=== PATIENT | female | born 1965 | race Two or more races ===

== ENCOUNTER 2016-03-29 11:27 | Inpatient (IN) | payer MEDICAID ==
[2016-03-29] MEDS ORDERED: Sodium Chloride 0.9% 1,000 ML IV ONE (11:41)
--- NOTE | 2016-03-29 11:47 | ED Physician Chart ---
Chief Complaint/HPI - Patient Information Date Seen:: 03/29/16 Time Seen:: 11:30 Chief Complaint:: vomiting History of Present Illness:: onset since 4am this am of N/V with intermittent occipital H/As relieved partially with advil; denies C/P, SOB, Abd pain, A/D/C, fever, chills, hematemesis, melena, hematochezia, cough, congestion, LOC, ALOC, gait changes, weakness, neck pain, or paresthesias Allergies:: Allergies Allergy/AdvReac Type Severity Reaction Status Date / Time No Known Allergies Allergy Verified 03/29/16 11:42 Review of Systems - Review of Systems General/Constitutional: No fever, No chills, No weight loss, No weakness, No diaphoresis, No edema, No loss of appetite Skin: No skin lesions, No rash, No bruising Head: No headache, No light-headedness Eyes: No loss of vision, No pain, No diplopia ENT: No earache, No nasal drainage, No sore throat, No tinnitus Neck: No neck pain, No swelling, No thyromegaly, No stiffness, No mass noted Cardio Vascular: No chest pain, No palpitations, No PND, No orthopnea, No edema Pulmonary: No SOB, No cough, No sputum, No wheezing GI: Nausea, No nausea, Vomiting, No vomiting, No diarrhea, No pain, No melena, No hematochezia, No constipation, No hematemesis G/U: No dysuria, No frequency, No hematuria Musculoskeletal: No bone or joint pain, No back pain, No muscle pain Endocrine: No polyuria, No polydipsia Psychiatric: No prior psych history, No depression, No anxiety, No suicidal ideation Hematopoietic: No bruising, No lymphadenopathy Allergic/Immuno: No urticaria, No angioedema Neurological: No syncope, No focal symptoms, No weakness, No paresthesia, Headache, No headache, No seizure, No dizziness, No confusion, No vertigo Past Medical History - Past Medical History Past Medical History: DM Family Medical History - Family Member Father Ethnicity: Living Status: Still Living Hx Family Cancer: Yes Physical Exam - Physical Examination General/Constitutional: Awake, Well-developed, well-nourished, Alert, No distress, GCS 15, Non-toxic appearing, Ambulatory Head: Atraumatic Eyes: Lids, conjuctiva normal, PERRL, EOMI Skin: Nl inspection, No rash, No skin lesions, No ecchymosis, Well hydrated, No lymphadenopathy ENMT: External ears, nose nl, Nasal exam nl, Lips, teeth, gums nl Neck: Nontender, Full ROM w/o pain, No JVD, No nuchal rigidity, No bruit, No mass, No stridor Respiratory: Nl effort/Exclusion, Clear to Auscultation, No Wheeze/Rhonchi/Rales Cardio Vascular: RRR, No murmur, gallop, rubs, NL S1 S2 GI: No tenderness/rebounding/guarding, No organomegaly, No hernia, Normal BS's, Nondistended, No mass/bruits, No McBurney tenderness : No CVA tenderness Extremities: No tenderness or effusion, Full ROM, normal strength in all extremities, No edema, Normal digits & nails Neuro/Psych: Alert/oriented, DTR's symmetric, Normal sensory exam, Normal motor strength, Judgement/insight normal, Mood normal, Normal gait, No focal deficits Misc: normal gait, Normal back, No paraspinal tenderness Labs/Radiology/EKG Results - Lab Results Results: Na+: 131; Glucose: 300; U/A: + leukocytes; many Bacteria; UCG: Negative Comments:: test: Negative ED Septic Shock - . Is Septic Shock (SBP<90, OR Lactate>4 mmol\L) present?: No - <6hrs of presentation: Assessment of Lungs: Lung CTA bilateral, Ventilator, Decreased BS, Rhonchi, No Rhonchi, Rales, No Rales, Wheezing, No Wheezing, Stridor, No Stridor, Other, Documented in PE Assessment of Heart: RRR, Thrill, No thrill, Gallops, No Gallops, S3, S4, Rub, No Rub, Murmur, No Murmur, Other, Documented in PE EKG Interpretation: Documented in Result Capillary refill evaluation: Capillary refill < 2 secs, Capillary refill > 2 secs, Other, Documented in PE Skin Exam: Warm, Dry, Good Turgur, Poor Turgor, Pallor, No Pallor, Diaphoretic, No Diaphoresis, Mottled, No Mottling, Cyanotic, Edema, No Edema, Erythema, No Erythema, Other, Documented in PE Reassessment (Disposition) - Reassessment Reassessment Condition:: Improved - Diagnosis Diagnosis:: Uncontrooled Diabetes Mellitus; Hyponatremia; UTI; Dehydration; Urosepsis; Vascular Cephalgia; Vomiting - Aftercare/Follow up Instructions Aftercare/Follow-Up Instructions:: Counseled pt & family regarding lab results/ diagnosis & need follow up - Patient Disposition Discharge/Transfer:: Acute Care w/in this hosp Accepting Physician:: Dr. Varner Time Called:: [id number] Time Responded:: 15:15 Admitted to:: Telemetry Spoke to:: Dr. Varner
[2016-03-29 12:14] LABS: % BASOPHILS 0.8 % (0.0-2.0); % EOSINOPHILS 0.9 % (0.0-5.0); % MONOCYTES 5.2 % (2.0-10.0); % NEUTROPHILS 59.1 % (40.0-80.0); HEMATOCRIT 42.3 % (35.0-45.0); HEMOGLOBIN 14.2 gm/dL (11.7-15.5); MEAN CELL VOLUME 87.3 fl (81-100); MEAN CORPUSCULAR HEMOGLOBIN 29.4 pg (27.0-31.0); MEAN CORPUSCULAR HGB CONC 33.6 pg (28.0-36.0); MEAN PLATELET VOLUME 8.1 fl; RED BLOOD COUNT 4.85 Mil/cmm (3.80-5.10); RED CELL DISTRIBUTION WIDTH 12.1 % (11.5-20.0)
[2016-03-29] MEDS ORDERED: Morphine Sulfate 2 mg/mL 1mL Syr IVP STA (12:18)
[2016-03-29 12:19] LABS: WHITE BLOOD COUNT 8.5 Th/cmm (4.8-10.8)
[2016-03-29 12:20] LABS: PLATELET COUNT 278 Th/cmm (150-400)
[2016-03-29] MEDS ORDERED: Morphine Sulfate 2 mg/mL 1mL Syr ONE (12:27)
[2016-03-29 12:30] LABS: AMYLASE SERUM 26 U/L (29-103); ANION GAP 10.2 (7.0-16.0); BUN - UREA NITROGEN 19 mg/dL (7-25); BUN/CREATININE RATIO 27.1; CALCIUM SERUM 9.4 mg/dL (8.6-10.3); CARBON DIOXIDE 23.7 mEq/L (21.0-31.0); CHLORIDE 101 mEq/L (98-107); CREATININE - SERUM 0.7 mg/dL (0.6-1.2); GLUCOSE 300 mg/dL (70-105); LIPASE 21 U/L (11-82); POTASSIUM SERUM 3.9 mEq/L (3.5-5.1); SODIUM SERUM 131 mEq/L (136-145)
[2016-03-29 13:06] LABS: URINE BILIRUBIN NEGATIVE (NEGATIVE); URINE COLOR YELLOW; URINE GLUCOSE (UA) 500 mg/dL (NEGATIVE); URINE KETONE NEGATIVE (NEGATIVE)
[2016-03-29 13:07] LABS: URINE BLOOD LARGE (NEGATIVE); URINE PH 5.5; URINE PROTEIN TRACE mg/dL (NEGATIVE); URINE UROBILINOGEN 0.2 E.U./dL (0.2 - 1.0)
[2016-03-29 13:17] LABS: URINE BACTERIA MANY /hpf (NONE SEEN); URINE EPITHELIAL CELLS MANY /lpf (FEW); URINE RBC 0-2 /hpf (0-5)
[2016-03-29] MEDS ORDERED: cefTRIAXone 1 GM in Sodium Chloride 0.9% 50 ML IV ONE (13:41)
[2016-03-29] MEDS ORDERED: INSULIN HUMAN REGULAR 100 UNITS/ML UNIT SUBQ ONE (13:43)
[2016-03-29] MEDS ORDERED: INSULIN HUMAN REGULAR 100 UNITS/ML UNIT ONE (13:50)
[2016-03-29] MEDS ORDERED: Sodium Chloride 0.45% 1,000 ML IV SCH (15:45)
[2016-03-29] MEDS ORDERED: IBUPROFEN 200 MG PO PRN (19:28)
[2016-03-29] MEDS ORDERED: guaiFENesin 200 MG/10 ML UDC PO PRN (19:30)
[2016-03-29] MEDS ORDERED: Hydrocodone/APAP 5mg/325mg Tab PO PRN (19:30)
[2016-03-29] MEDS ORDERED: Maalox 30 mL Cup PO PRN (19:30)
[2016-03-29] MEDS ORDERED: Albuterol Nebulizer 2.5mg/3mL IH PRN (19:30)
[2016-03-29] MEDS ORDERED: Levofloxacin 500mg/100mL 500 MG/100 ML BAG IV SCH (19:30)
[2016-03-29] MEDS ORDERED: Sodium Chloride 0.9% 1,000 ML IV SCH (19:30)
[2016-03-29] MEDS ORDERED: INSULIN ASPART, RECOMBINANT 100 UNITS/ML SUBQ SCH (21:00)
[2016-03-30] MEDS ORDERED: GLUCAGON HCl 1 MG KIT IM PRN (01:25)
[2016-03-30] MEDS ORDERED: Dextrose 50% 50 mL Abboject IVP PRN (01:25)
[2016-03-30 07:28] LABS: % BASOPHILS 0.5 % (0.0-2.0); % EOSINOPHILS 1.1 % (0.0-5.0); % LYMPHOCYTES 38.5 % (20.0-50.0); % NEUTROPHILS 53.9 % (40.0-80.0); HEMATOCRIT 39.3 % (35.0-45.0); HEMOGLOBIN 13.6 gm/dL (11.7-15.5); MEAN CORPUSCULAR HEMOGLOBIN 30.5 pg (27.0-31.0); MEAN CORPUSCULAR HGB CONC 34.6 pg (28.0-36.0); MEAN PLATELET VOLUME 8.3 fl; NEUTROPHILE ABSOLUTE 3.9 Th/cmm (1.8-8.0); PLATELET COUNT 246 Th/cmm (150-400); RED BLOOD COUNT 4.46 Mil/cmm (3.80-5.10); RED CELL DISTRIBUTION WIDTH 12.4 % (11.5-20.0); WHITE BLOOD COUNT 7.2 Th/cmm (4.8-10.8)
[2016-03-30 07:46] LABS: ALB/GLOB RATIO 1.2 (1.0-1.8); ALKALINE PHOSPHATASE 60 U/L (34-104); ANION GAP 8.3 (7.0-16.0); BILIRUBIN,TOTAL 0.6 mg/dL (0.3-1.0); BUN - UREA NITROGEN 17 mg/dL (7-25); BUN/CREATININE RATIO 28.3; CALCIUM SERUM 8.3 mg/dL (8.6-10.3); CARBON DIOXIDE 23.4 mEq/L (21.0-31.0); CHLORIDE 106 mEq/L (98-107); CREATININE - SERUM 0.6 mg/dL (0.6-1.2); GLUCOSE 185 mg/dL (70-105); MAGNESIUM 1.8 mg/dL (1.9-2.7); POTASSIUM SERUM 3.7 mEq/L (3.5-5.1); SGOT 10 U/L (13-39); SGPT/ALT 8 U/L (7-52); SODIUM SERUM 134 mEq/L (136-145)
[2016-03-30] MEDS ORDERED: Docusate Sodium/Senna Tab PO PRN (08:00)
--- NOTE | 2016-03-30 11:19 | Diagnostic Imaging Report ---
CT scan of the brain without contrast History: Headache Total DLP equals 538 CTDI equals 34.4 Axial sections were obtained from the base of the skull to the vertex. There is a normal ventricular system size. No focal parenchymal lesions are seen. No evidence of any mass effect or shift of midline structures. No extra-axial masses or abnormal fluid collections. Mild mucosal thickening seen through the ethmoid sinuses. Sclerotic changes involve the mastoid air cells consistent with inflammatory sequelae. Impression: 1. No acute intracerebral abnormalities 2. Mild mucosal thickening within the ethmoid sinuses 3. Sclerotic change involving the mastoid air cells consistent with inflammatory sequelae
== END 2016-03-30 09:00 | disposition short-term general hospital (02) | DRG 54 ==
LOC: ER 11:27 → TELE 15:32
PROVIDERS: ADMIT Internal Medicine; ATTEND Internal Medicine
DX: G44.1 Vascular headache, not elsewhere classified (principal); E11.65 Type 2 diabetes mellitus with hyperglycemia; E87.1 Hypo-osmolality and hyponatremia; N39.0 Urinary tract infection, site not specified; E86.0 Dehydration; R11.10 Vomiting, unspecified
CPT/HCPCS: 36415-UA; 70450-TC; 80048-TC; 80053-TC; 81001-TC; 81025-TC; 82150-TC; 82948-90; 83036-90; 83690-TC; 83735-TC; 84443-TC; 84484-TC; 85025-TC; 87086-90; 93005; 94760; 96375; J0696; J1815; J1956; J2270; J2405; J7030; Z7610

== ENCOUNTER 2016-11-05 10:19 | Emergency (ER) | payer MEDICAID ==
[2016-11-05] MEDS ORDERED: Albuterol/Ipratropium Neb 3 ML AERS HHN ONE ×2 (11:30→11:48)
--- NOTE | 2016-11-05 11:36 | ED Physician Chart ---
Chief Complaint/HPI - Patient Information Date Seen:: 11/05/16 Time Seen:: 11:20 Chief Complaint:: cough History of Present Illness:: Patient has had nonproductive cough and sore throat for 3 days. She said chills and did not take her temperature. He has had some wheezing. She also complains of mild dysuria. Allergies:: Allergies Allergy/AdvReac Type Severity Reaction Status Date / Time No Known Allergies Allergy Verified 11/05/16 11:09 Vitals:: Vital Signs - 8 hr 11/05/16 11:03 Temp 98.7 F HR 85 RR 18 O2 Sat % 96 Historian:: Patient Review:: Nurse's Note Reviewed Review of Systems - Review of Systems General/Constitutional: Chills Skin: No skin lesions Head: No headache Eyes: No loss of vision ENT: No earache Neck: No neck pain Cardio Vascular: No chest pain Pulmonary: SOB GI: No nausea, No vomiting, No diarrhea G/U: Dysuria Musculoskeletal: No bone or joint pain, No muscle pain Psychiatric: No prior psych history Hematopoietic: No bruising Allergic/Immuno: No urticaria Neurological: No syncope, No focal symptoms Past Medical History - Past Medical History Past Medical History: DM, Asthma/COPD Family History: Diabetes Melitus Social History: Non Smoker Surgical History: Cholecystectomy, , other (2 sections) Psychiatricy History: None Medication: Reviewed Family Medical History - Family Member Father History Unknown: Yes Ethnicity: Living Status: Still Living Hx Family Cancer: Yes Hx Family Coronary Artery Disease: No Hx Family Congestive Heart Failure: No Hx Family Hypertension: No Hx Family Stroke: No Hx Family Diabetes: Yes Hx Family Seizures: No Hx Family Dementia: No Hx Family AIDS: No Hx Family HIV: No Hx Family COPD: No Hx Family Hepatitis: No Hx Family Psychiatric Problems: No Hx Family Tuberculosis: No Physical Exam - Physical Examination General/Constitutional: Well-developed, well-nourished, Alert Head: Atraumatic Eyes: Lids, conjuctiva normal, PERRL Skin: Nl inspection, No rash, No skin lesions, No ecchymosis, Well hydrated, No lymphadenopathy ENMT: External ears, nose nl, TM canals nl, Nasal exam nl, Lips, teeth, gums nl , Oropharynx nl, Tonsils nl Neck: No nuchal rigidity Respiratory: Nl effort/Exclusion, Clear to Auscultation Other Respiratory comments:: Slight prolongation of expiration phase Cardio Vascular: RRR, No murmur, gallop, rubs GI: No tenderness/rebounding/guarding, No organomegaly, No hernia, Normal BS's, Nondistended, No mass/bruits, No McBurney tenderness : No CVA tenderness Extremities: Normal digits & nails Neuro/Psych: Alert/oriented, No focal deficits Misc: Normal back, No paraspinal tenderness ED Septic Shock - <6hrs of presentation: Vital Signs: Vital Signs - 8 hr 11/05/16 11:03 Temp 98.7 F HR 85 RR 18 O2 Sat % 96 Reassessment (Disposition) - Reassessment Reassessment:: At 12:30 patient felt better; she was noted to have easy unlabored respirations ; pulse ox was up to 97%. Although the patient reports that she has been wheezing the asthma episode appears mild and does not seem to require oral steroids. Reassessment Condition:: Improved - Diagnosis Diagnosis:: Acute viral syndrome; viral pharyngitis; exacerbation asthma - Aftercare/Follow up Instructions Aftercare/Follow-Up Instructions:: Refer to Discharge Instructions - Patient Disposition Discharge/Transfer:: Home
[2016-11-05 13:04] LABS: URINE BILIRUBIN NEGATIVE (NEGATIVE); URINE BLOOD NEGATIVE (NEGATIVE); URINE GLUCOSE (UA) >=1000 mg/dL (NEGATIVE); URINE KETONE NEGATIVE (NEGATIVE); URINE PROTEIN NEGATIVE (NEGATIVE); URINE UROBILINOGEN 0.2 E.U./dL (0.2 - 1.0)
[2016-11-05 13:06] LABS: URINE COLOR YELLOW
[2016-11-05 13:07] LABS: URINE RBC NONE SEEN /hpf (0-5)
[2016-11-05 13:08] LABS: URINE BACTERIA MANY /hpf (NONE SEEN); URINE EPITHELIAL CELLS FEW /lpf (FEW)
== END 2016-11-05 13:00 | disposition home or self-care (01) ==
LOC: ER 10:19
DX: B34.9 Viral infection, unspecified (principal); J02.8 Acute pharyngitis due to other specified organisms; J45.901 Unspecified asthma with (acute) exacerbation; J44.9 Chronic obstructive pulmonary disease, unspecified; E11.9 Type 2 diabetes mellitus without complications
CPT/HCPCS: 81001-TC; 94640; Z7502

== ENCOUNTER 2017-10-21 12:57 | Emergency (ER) | payer MEDICAID ==
--- NOTE | 2017-10-21 13:38 | ED Physician Chart ---
ED Chief Complaint/HPI - Patient Information Date Seen:: 10/21/17 Time Seen:: 13:25 Chief Complaint:: redness and peeling of skin of palms both hands History of Present Illness:: Patient started on Bactrim DS 10/06/2017 for urinary tract infection. The same day a rash appeared on the palms of both hands which has gradually worsening. Patient still complains of dysuria. Patient also complains a headache. No chills, fever or back pain. Allergies:: Allergies Allergy/AdvReac Type Severity Reaction Status Date / Time No Known Allergies Allergy Verified 11/05/16 11:09 Vitals:: Vital Signs - 8 hr 10/21/17 13:08 Temp 97.8 F HR 67 RR 16 BP 118/69 O2 Sat % 99 Historian:: Patient Review:: Nurse's Note Reviewed ED Review of Systems - Review of Systems General/Constitutional: No fever, No chills, No weight loss, No weakness, No diaphoresis, No edema, No loss of appetite Skin: Skin lesions, Rash, No rash, No bruising Head: No headache, No light-headedness Eyes: No loss of vision, No pain, No diplopia ENT: No earache, No nasal drainage, No sore throat, No tinnitus Neck: No neck pain, No swelling, No thyromegaly, No stiffness, No mass noted Cardio Vascular: No chest pain, No palpitations, No PND, No orthopnea, No edema Pulmonary: No SOB, No cough, No sputum, No wheezing GI: No nausea, No vomiting, No diarrhea, No pain, No melena, No hematochezia, No constipation, No hematemesis G/U: No dysuria, No frequency, No hematuria Musculoskeletal: No bone or joint pain, No back pain, No muscle pain Endocrine: No polyuria, No polydipsia Psychiatric: No prior psych history, No depression, No anxiety, No suicidal ideation Hematopoietic: No bruising, No lymphadenopathy Allergic/Immuno: No urticaria, No angioedema Neurological: No syncope, No focal symptoms, No weakness, No paresthesia, No headache, No seizure, No dizziness, No confusion, No vertigo Family Medical History - Family Member Father History Unknown: Yes Ethnicity: Living Status: Still Living Hx Family Cancer: Yes Hx Family Coronary Artery Disease: No Hx Family Congestive Heart Failure: No Hx Family Hypertension: No Hx Family Stroke: No Hx Family Diabetes: Yes Hx Family Seizures: No Hx Family Dementia: No Hx Family AIDS: No Hx Family HIV: No Hx Family COPD: No Hx Family Hepatitis: No Hx Family Psychiatric Problems: No Hx Family Tuberculosis: No ED Physical Exam - Physical Examination General/Constitutional: Awake, Well-developed, well-nourished, Alert, No distress, GCS 15, Non-toxic appearing, Ambulatory Head: Atraumatic Eyes: Lids, conjuctiva normal, PERRL, EOMI Skin: Well hydrated, No lymphadenopathy Other Skin comments:: Palms: Skin peeling and mild erythema ENMT: External ears, nose nl, Nasal exam nl, Lips, teeth, gums nl Neck: Nontender, Full ROM w/o pain, No JVD, No nuchal rigidity, No bruit, No mass, No stridor Respiratory: Nl effort/Exclusion, Clear to Auscultation, No Wheeze/Rhonchi/Rales Cardio Vascular: RRR, No murmur, gallop, rubs, NL S1 S2 GI: No tenderness/rebounding/guarding, No organomegaly, No hernia, Normal BS's, Nondistended, No mass/bruits, No McBurney tenderness : No CVA tenderness Extremities: No tenderness or effusion, Full ROM, normal strength in all extremities, No edema, Normal digits & nails Neuro/Psych: Alert/oriented, DTR's symmetric, Normal sensory exam, Normal motor strength, Judgement/insight normal, Mood normal, Normal gait, No focal deficits Misc: Normal back, No paraspinal tenderness ED Labs/Radiology/EKG Results - Lab Results Results: Laboratory Results - last 24 hr 10/21/17 12:28 Urine Source CLEAN C Urine Color YELLOW Urine Clarity CLEAR Urine pH 7.0 Ur Specific [place] <= 1.005 Urine Protein NEGATIVE Urine Glucose (UA) NEGATIVE Urine Ketones NEGATIVE Urine Blood NEGATIVE Urine Nitrate NEGATIVE Urine Bilirubin NEGATIVE Urine Urobilinogen 0.2 Ur Leukocyte Esterase NEGATIVE ED Assessment - Assessment General Assessment: Since patient no longer has a urinary tract infection she was told to stop the Bactrim DS. Prescription for Glucovance 5 mg/500 mg given per son's request as the patient ran out of the medicine. ED Septic Shock - . Is Septic Shock (SBP<90, OR Lactate>4 mmol\L) present?: No - <6hrs of presentation: Vital Signs: Vital Signs - 8 hr 10/21/17 13:08 Temp 97.8 F HR 67 RR 16 BP 118/69 O2 Sat % 99 ED Reassessment (Disposition) - Reassessment Reassessment Condition:: Unchanged - Diagnosis Diagnosis:: Allergic reaction to Bactrim DS; medication refill - Aftercare/Follow up Instructions Aftercare/Follow-Up Instructions:: Refer to Discharge Instructions - Patient Disposition Discharge/Transfer:: Home Condition at Disposition:: Stable, Unchanged
[2017-10-21 15:19] LABS: URINE BILIRUBIN NEGATIVE (NEGATIVE); URINE BLOOD NEGATIVE (NEGATIVE); URINE GLUCOSE (UA) NEGATIVE (NEGATIVE); URINE KETONE NEGATIVE (NEGATIVE); URINE LEUKOCYTE ESTERASE NEGATIVE (NEGATIVE); URINE NITRATE NEGATIVE (NEGATIVE); URINE PROTEIN NEGATIVE (NEGATIVE); URINE SOURCE CLEAN C; URINE UROBILINOGEN 0.2 E.U./dL (0.2 - 1.0)
[2017-10-21 15:28] LABS: URINE CLARITY CLEAR (CLEAR); URINE COLOR YELLOW
[2017-10-21 15:29] LABS: URINE MICROSCOPIC INDICATED? NO
== END 2017-10-21 16:00 | disposition home or self-care (01) ==
LOC: ER 12:57
DX: R21 Rash and other nonspecific skin eruption (principal); R51 Headache; R30.0 Dysuria; T37.0X5A Adverse effect of sulfonamides, initial encounter; Z76.0 Encounter for issue of repeat prescription; Y92.89 Other specified places as the place of occurrence of the external cause
CPT/HCPCS: 81003-TC; Z7502